=== PATIENT | female | born 1970 | race Caucasian/White ===

== ENCOUNTER → 2016-11-19 | Outpatient (REF) | payer BC ==
[2016-11-19 11:28] LABS: BASO % 0.7 % (0.0-1.0); EOS # 0.3 K/mm3 (0.0-0.50); EOS % 4.4 % (0.0-3.0); LARGE UNSTAINED CELL # 0.1 K/mm3 (0.0-0.4); LARGE UNSTAINED CELL % 1.7 % (0.0-4.0); LYMPH # 2.3 K/mm3 (1.5-4.5); LYMPH % 30.3 % (24.0-44.0); MEAN CORPUSCULAR HEMOGLOBIN 30.5 pg (27.0-33.0); MEAN CORPUSCULAR HGB CONC 33.2 g/dl (32.0-36.5); MEAN CORPUSCULAR VOLUME 91.8 fl (80.0-96.0); MONO # 0.4 K/mm3 (0.0-0.8); MONO % 5.3 % (0.0-5.0); NEUTROPHILS # 4.2 K/mm3 (1.8-7.7); NEUTROPHILS % 57.7 % (36.0-66.0); PLATELET COUNT, AUTOMATED 267 k/mm3 (150-450); RED CELL DISTRIBUTION WIDTH 13.1 % (11.5-14.5); WHITE BLOOD COUNT 7.2 K/mm3 (4.0-10.0)
[2016-11-19 11:42] LABS: ALBUMIN 3.5 GM/DL (3.2-5.2); ALBUMIN/GLOBULIN RATIO 1.09 (1.00-1.93); ALKALINE PHOSPHATASE 82 U/L (45-117); ALT/SGPT 36 U/L (12-78); ANION GAP 5 MEQ/L (8-16); AST/SGOT 10 U/L (15-37); BILIRUBIN,TOTAL 0.4 MG/DL (0.2-1.0); BLOOD UREA NITROGEN 17 MG/DL (7-18); CALCIUM LEVEL 8.6 MG/DL (8.5-10.1); CARBON DIOXIDE LEVEL 29 MEQ/L (21-32); CHLORIDE LEVEL 109 MEQ/L (98-107); CHOLESTEROL LEVEL 154 MG/DL (<200); CREATININE FOR GFR 0.86 MG/DL (0.55-1.02); GLOMERULAR FILTRATION RATE > 60.0 (>58); GLUCOSE, FASTING 94 MG/DL (70-105); POTASSIUM SERUM 4.3 MEQ/L (3.5-5.1); SODIUM LEVEL 143 MEQ/L (136-145); TOTAL PROTEIN 6.7 GM/DL (6.4-8.2); TRIGLYCERIDES LEVEL 142 MG/DL (<150)
== END ==
LOC: M LABDRAW1 10:59
PROVIDERS: ATTEND Emergency Medicine
DX: R05 Cough (principal); K21.9 Gastro-esophageal reflux disease without esophagitis; E55.9 Vitamin D deficiency, unspecified

== ENCOUNTER → 2017-02-25 | Outpatient (CLI) | payer BC ==
--- NOTE | 2017-02-28 20:17 | SLEEPHOME ---
DATE OF PROCEDURE: 02/25/2017 ORDERED BY: Rita Ballard Diagnostic home sleep testing was performed due to concern for the obstructive sleep apnea syndrome. For testing, a NOX-T3 respiratory monitoring device was used. Continuous record was made of pulse, oxygen saturation, air flow, chest and abdominal strain and body position. 9 hours and 59 minutes of data were reviewed. There were 7 hours and 3 minutes of time marked as time in bed. During the interval marked time in bed, there were 47 respiratory events identified of 10 seconds in duration or greater for a respiratory event index of 6.7. The events were primarily obstructive, not related to body position. Baseline pulse rate 75 beats per minute. Pulse rate ranged 39 to 180. Baseline saturation 95%. Lowest oxygen saturation 75%. Testing was performed in both supine and nonsupine positions. IMPRESSION: Abnormal home sleep testing with repetitive respiratory events and oxygen desaturations to 75% with a respiratory event index of 6.7 is consistent with the obstructive sleep apnea syndrome. RECOMMENDATION: The patient should be encouraged to undergo a formal sleep evaluation and in laboratory pressure titration. Copy To: Dr. Hodgson
== END ==
LOC: M SLEEP HO 13:37
PROVIDERS: ATTEND Nurse Practitioner Adult Health
DX: G47.30 Sleep apnea, unspecified (principal)